=== PATIENT | male | born 1995 | race Caucasian/White ===

== ENCOUNTER → 2021-02-27 18:19 | Outpatient (CLI) | payer MEDICARE, SELFPAY ==
[2021-03-01 20:08] LABS: Covid Inpatient test code BILL Performed (.)
== END ==
PROVIDERS: Visit Provider Physician Assistant Surgical
DX: Z11.52 Encounter for screening for COVID-19 (principal)
CPT/HCPCS: 87635; U0005; U0003

== ENCOUNTER → 2021-03-09 | Outpatient (CLI) | payer SELFPAY | END | disposition home or self-care (01) | LOC: LABSPEC 03-12 08:38 | PROVIDERS: Referring Provider Physician Assistant Surgical; Visit Provider Physician Assistant Surgical | DX: Z11.52 Encounter for screening for COVID-19 (principal) | CPT/HCPCS: 87635; U0003 ==